=== PATIENT | male | born 1960 | race Caucasian/White ===

== ENCOUNTER → 2020-12-16 | Outpatient (CLI) | payer OTHER ==
[~2020-12-16] MED LIST: ASA81BEC PO; ATORVASTATIN CA80 MG PO; CLOPIDOGREL75 MG PO; COLAZAL750 M1 PO; EZETIMIBE10 MG PO; HYDRALAZINE 5050 MG PO; HYDROCHLOROTHIA25 M1 PO; LOSARTAN POTAS100 MG PO; METOPROLOL TART25 MG PO; PROTONIX40 M2 PO; TAMSULOSIN HCL0.4 MG PO
== END ==
LOC: LAB 08:27
PROVIDERS: ATTEND Student in an Organized Health Care Education/Training Program
DX: Z01.812 Encounter for preprocedural laboratory examination (principal); Z20.822 Contact with and (suspected) exposure to COVID-19

== ENCOUNTER → 2020-12-18 | Outpatient (CLI) | payer OTHER ==
[~2020-12-18] VITALS: Ht 177.8 cm; Wt 77.1 kg
--- NOTE | 2020-12-20 10:23 | P ---
[facility] [place] [address] PROCEDURE REPORT Name: KAYA NIEVESAM Room #: REG [facility] Max#: [id number] Admission: 12/18/20 Attend Phys: Pascual Painter Discharge: Date of : 64 Report #: [id number] THIS REPORT FOR: cc: Medardo Berry MD, Bradley MD McElhinney, Christian C. MD ~ cc: Medardo Berry MD DATE OF SERVICE: 12/18/2020 PROCEDURE PERFORMED: Colonoscopy with biopsies. HISTORY OF PRESENT ILLNESS: The patient is a 60-year-old male with a history of ulcerative colitis diagnosed in 2013. The patient had COVID infection in December. Since that time, he has been having increasing diarrhea, averages 3-4 loose stools per day. He was seen in the office by myself on 10/01/2020. He has been on Colazal 2 three times a day. Previously, this was controlling his symptoms quite well. He denies any abdominal pain or blood in his stools. He does have a family history of colon cancer in his mother. He was placed on prednisone taper at that time, which improved his symptoms, but after finishing the taper he again is having loose stools. Plan is for colonoscopy. DESCRIPTION OF PROCEDURE: The risks and benefits of the procedure were explained to the patient, those risks including but not limited to bleeding, perforation and the risk of sedation. He understood these risks and gave informed consent. Sedation was given using propofol per Anesthesia. Next, a digital rectal exam was initially performed, which was normal. Next, using a standard Olympus colonoscope, the scope was placed in the patient's anus and advanced under direct vision to the cecum. The overall prep was excellent. The cecum and ileocecal valve were normal in appearance. A few pseudopolyps were noted in the ascending and transverse colon. Random biopsies were obtained in the ascending, transverse, descending and sigmoid colon as well as rectum. No obvious colitis was noted. There was some old scarring noted in the transverse colon. Also noted in the sigmoid colon were a few small diverticula and a single 4 mm sessile polyp. This was removed with cold forceps. On retroflexion, small nonbleeding internal hemorrhoids were noted. The scope was then withdrawn and the procedure terminated. The patient tolerated the procedure well. IMPRESSION: 1. A few scattered small pseudopolyps in the right colon. 2. Scarring within the transverse colon. 3. Sigmoid diverticulosis, mild. 4. Small sigmoid colon polyp. 5. Small internal hemorrhoids. 6. No obvious active ulcerative colitis on endoscopy today. [address] [address] PROCEDURE REPORT Name: KAYA NIEVES Room #: REG FIL[facility] Santana#: [id number] Admission: 12/18/20 Attend Phys: Pascual Painter Discharge: Date of : 64 Report #: [id number] RECOMMENDATIONS: 1. Await biopsy results. 2. I will make further recommendations once results are complete. Thank you for allowing me to participate in his care. <ELECTRONICALLY SIGNED> By: Pascual Basilio MD 12/20/20 1023 0838 [id number] Pascual Basilio MD /nt
--- NOTE | 2020-12-20 14:07 | PATH ---
[facility] [address] [place] [address] PATHOLOGY RPT PROCEDURE Name: ARISTIDES ONTIVEROSAM Room #: REG CL MJaradR.#: [id number] Admission: 12/18/20 Date of : 64 Discharge: Report #: [id number] Path Case #: [id number] [facility] Accession Number: [id number] . 01 Material submitted: . PART A: colon - ASCENDING COLON BIOPSY R/O MICROSCOPIC COLITIS. Modifiers: ascending PART B: colon - TRANSVERSE COLON BIOPSY R/O MICROSCOPIC COLITIS. Modifiers: transverse PART C: colon - DESCENDING COLON BIOPSY R/O MICROSCOPIC COLITIS. Modifiers: descending PART D: sigmoid colon - SIGMOID COLON BIOPSY R/O MICROSCOPIC COLITIS PART E: rectum - RECTAL COLON PART F: sigmoid colon - SIGMOID POLYP BIOPSY . 01 Clinical history: . COLONOSCOPY/DIARRHEA . 02 Diagnosis: A. Large intestine, ascending colon rule out microscopic colitis, endoscopic biopsy: - Nonspecific reactive changes. - Negative for acute colitis. - Negative for microscopic colitis. - Negative for dysplasia. . B. Large intestinal mucosa, transverse colon rule out microscopic colitis, endoscopic biopsy: - Rare pigmented macrophages within lamina propria associated with apoptotic bodies in the surface epithelium, consistent with nonspecific reactive changes. - Negative for acute colitis. - Negative for microscopic colitis. - Negative for dysplasia. . C. Large intestinal mucosa, descending colon rule out microscopic colitis, endoscopic biopsy: - Focal acute surface epithelial inflammation present. - Rare pigmented macrophages within lamina propria. - Negative for microscopic colitis. - Negative for dysplasia. . D. Large intestinal mucosa, sigmoid colon rule out microscopic colitis, endoscopic biopsy: - Focal acute surface epithelial inflammation present. - Rare pigmented macrophages within lamina propria. - Negative for microscopic colitis. - Negative for dysplasia. [address] [address] PATHOLOGY RPT PROCEDURE Name: ARISTIDES ONTIVEROSAM Room #: REG [facility].#: [id number] Admission: 12/18/20 Date of : 64 Discharge: Report #: [id number] Path Case #: [id number] . E. Large intestinal mucosa, rectal colon, endoscopic biopsy: - Focal acute surface epithelial inflammation present. - Rare pigmented macrophages within lamina propria. - Negative for microscopic colitis. - Negative for dysplasia. . F. Polyp, sigmoid polyp, endoscopic biopsy: - Tubular adenoma. - Negative for high grade dysplasia. . (IUV:mml; 12/19/2020) QLM 12/19/2020 1414 Local . 02 Comment: Sections of the colonic mucosa designated "descending colon, sigmoid colon and rectal colon" show focal cryptitis, and a moderately cellular lamina propria composed predominantly of lymphocytes and plasma cells and occasional eosinophils. Surface ulceration is not identified. There are no crypt abscesses, granulomas or viral inclusions. The ascending colon and transverse colon biopsy tissues lack acute colitis. The presence of rare pigmented macrophages within lamina propria is suggestive of laxative use. Given the description, the differential diagnosis includes focal acute colitis of self-limited etiology, bowel preparation, medication/drug-induced colitis, as well as acute and chronic diverticulitis. Please correlate with clinical as well as endoscopic findings. . (IUV:mml; 12/19/2020) . 02 Electronically signed: . Juliana Lagos MD, Pathologist NPI- [id number] . 01 Gross description: . A. The specimen is submitted in formalin, labeled "Aristides Ontiveros, ascending colon". Received are 3 segments of pale arroyo tissue ranging in size from 0.2 to 0.5 cm in maximum dimensions. The specimen is submitted entirely in cassette A1. . B. The specimen is submitted in formalin, labeled "Aristides Ontiveros, transverse colon". Received are 2 segments of pale arroyo tissue ranging in size from 0.3 to 0.5 cm in maximum dimensions. The specimen is submitted entirely in cassette B1. . C. The specimen is submitted in formalin, labeled "Aristides Ontiveros, descending colon". Received are 4 segments of pale arroyo tissue ranging in [address] [address] PATHOLOGY RPT PROCEDURE Name: ARISTIDES ONTIVEROS Room #: REG [facility] Santana#: [id number] Admission: 12/18/20 Date of : 64 Discharge: Report #: [id number] Path Case #: [id number] size from 0.2 to 0.4 cm in maximum dimensions. The specimen is submitted entirely in cassette C1. . D. The specimen is submitted in formalin, labeled "Hemberger, Aristides, sigmoid colon". Received are 4 segments of pale arroyo tissue ranging in size from 0.2 to 0.4 cm in maximum dimensions. The specimen is submitted entirely in cassette D1. . E. The specimen is submitted in formalin, labeled "Hemberger, Aristides, rectal colon". Received are 4 segments of pale arroyo tissue ranging in size from 0.3 to 0.4 cm in maximum dimensions. The specimen is submitted entirely in cassette E1. . F. The specimen is submitted in formalin, labeled "Hemberger, Aristides, sigmoid polyp biopsy". Received are 2 segments of pale arroyo tissue ranging in size from 0.2 to 0.3 cm in maximum dimensions. The specimen is submitted entirely in cassette F1. ([facility]; 12/18/2020) NRI/NRI 12/18/2020 2215 Local . 02 Pathologist provided ICD-10: K52.9, D12.5, Z12.11, R19.7 . 02 CPT . 340580, 880264, 919651, 987156, 608283, 523108 Specimen Comment: A courtesy copy of this report has been sent to [phone] Specimen Comment: [id number] Specimen Comment: Report sent to / DR GREWAL Specimen Comment: A duplicate report has been generated due to demographic updates. Performed at: [address] [facility], [place], [place] [id number] MD Mau Metcalf MD Phone: [phone] Performed at: [address] [facility] [address] [id number] MD Juliana Lagos MD Phone: [phone]
== END | disposition home or self-care (01) ==
LOC: GI → EDSTATUS 12:29 → GI 16:32
PROVIDERS: ATTEND Specialist
DX: R19.7 Diarrhea, unspecified (principal); D12.5 Benign neoplasm of sigmoid colon; K57.30 Diverticulosis of large intestine without perforation or abscess without bleeding; K64.8 Other hemorrhoids; I10 Essential (primary) hypertension; E78.5 Hyperlipidemia, unspecified; N40.0 Benign prostatic hyperplasia without lower urinary tract symptoms; F17.210 Nicotine dependence, cigarettes, uncomplicated; Z80.0 Family history of malignant neoplasm of digestive organs; Z98.890 Other specified postprocedural states; Z79.899 Other long term (current) drug therapy; Z79.82 Long term (current) use of aspirin; Z85.828 Personal history of other malignant neoplasm of skin; Z96.642 Presence of left artificial hip joint; Z20.822 Contact with and (suspected) exposure to COVID-19
CPT/HCPCS: 62110; 62900